=== PATIENT | female | born 1975 | race Caucasian/White ===

== ENCOUNTER → 2016-03-12 | Outpatient (CLI) | payer OTHER ==
[2016-03-12 09:16] LABS: Allen Test ACCEPTAB; Arterial HCO3 23.4 mmol/L (22.0-26.0); Arterial MetHb 0.3 % (0.0-1.5); Arterial Total Hemglobin 14.5 g/dl (12.0-18.0); MODE ROOM AIR
== END | disposition home or self-care (01) ==
LOC: PUL 08:35
PROVIDERS: ATTEND Internal Medicine Pulmonary Disease
DX: Z93.0 Tracheostomy status (principal)
CPT/HCPCS: 36600; 82803